=== PATIENT | female | born 1980 | race Hispanic/Latino ===

== ENCOUNTER 2017-09-17 09:18 | Emergency (ER) | payer BC, OTHER | END 2017-09-17 10:49 | disposition home or self-care (01) | LOC: EDH 09:18 | DX: Z04.1 Encounter for examination and observation following transport accident (principal); Z98.51 Tubal ligation status; Z90.49 Acquired absence of other specified parts of digestive tract; V49.49XA Driver injured in collision with other motor vehicles in traffic accident, initial encounter; Y93.89 Activity, other specified; Y92.89 Other specified places as the place of occurrence of the external cause; Y99.8 Other external cause status | CPT/HCPCS: 99281 ==